=== PATIENT | female | born 1965 | race Caucasian/White ===

== ENCOUNTER → 2017-07-30 | Outpatient (CLI) | payer OTHER, BC ==
--- NOTE | 2017-08-02 09:47 | EEG PRO FEE REPORT ---
EEG INTERPRETATION PATIENT NAME: NICK VINSON ROOM#: ORDER#: [id number] DATE OF STUDY: 07/30/2017 : 1965 REFERRING MD: ADRIAN GODOY M.D. DIAGNOSIS: Delayed speech REPORT The background activity consists almost entirely of motion artifact on a background of what appears to be when it can barely be seen 10-12 Hz alpha. IMPRESSION No video correlations of seizures are noted. Basically it is a very difficult EEG to read because of all the excessive motion artifact. INTERPRETING PHYSICIAN: ADRIAN GODOY M.D. /: MTEFFT TT: [id number] ID: [id number] /: [id number] TD: [id number] JOB: [id number] cc:Betty KING M.D. >
== END ==
LOC: NEURO 08:20
PROVIDERS: ATTEND Specialist
DX: F80.9 Developmental disorder of speech and language, unspecified (principal)
CPT/HCPCS: 95819

== ENCOUNTER 2017-10-04 20:03 | Emergency (ER) | payer BC, OTHER ==
--- NOTE | 2017-10-04 20:42 | ER Document Report ---
ED General - General Chief Complaint: General Weakness Stated Complaint: WEAKNESS Time Seen by Provider: 10/04/17 20:22 Notes: Patient is a 51-year-old female that comes emergency department for chief complaint of weakness, intermittent weakness and numbness in her limbs, increased stuttering, and difficulty recalling things. She states that she was called by her primary, Derrick DE LA FUENTE, told that she had abnormal labs and she needed to come to the emergency department. She is unsure what these labs are. She states over the past 2 weeks she has had increased stuttering problems, she states 4 days ago she went numb in her right leg but it resolved, she states 2 days ago she went numb in her left arm and leg but this also resolved. She states she feels generally weak. She has trouble recalling anything that is currently happening reportedly. She denies any focal numbness or weakness at this time, denies headache, fever, shortness of breath, nausea or vomiting, passing out. Past medical history of cirrhosis secondary to alcohol, hypothyroidism, depression. She denies any recreational drugs. She has had a cholecystectomy and gastric bypass. TRAVEL OUTSIDE OF THE [place] IN LAST 30 DAYS: No - Related Data Allergies/Adverse Reactions: No Known Allergies Allergy (Verified 03/15/16 11:57) Past Medical History - General Information source: Patient - Social History Smoking Status: Former Smoker Frequency of alcohol use: Heavy - Daily Drug Abuse: None Lives with: Family Family History: Reviewed & Not Pertinent Pulmonary Medical History: Denies: Hx Tuberculosis Endocrine Medical History: Reports: Hx Hypothyroidism GI Medical History: Reports: Other - Cirrhosis of the liver Past Surgical History: Reports: Hx Section, Hx Cholecystectomy, Hx Gastric Bypass Surgery - She reports her gastric bypass work for about 7 years and then stopped work, Hx Orthopedic Surgery - left arm rotator cuff repair, Hx Tonsillectomy, Hx Tubal Ligation. Denies: Hx Pacemaker - Immunizations Hx Diphtheria, Pertussis, Tetanus Vaccination: No Review of Systems - Review of Systems Constitutional: See HPI EENT: No symptoms reported Cardiovascular: No symptoms reported Respiratory: No symptoms reported Gastrointestinal: See HPI Genitourinary: No symptoms reported Female Genitourinary: No symptoms reported Musculoskeletal: No symptoms reported Skin: No symptoms reported Hematologic/Lymphatic: No symptoms reported Neurological/Psychological: See HPI Physical Exam - Vital signs Vitals: Temp Pulse Resp BP Pulse Ox 97.9 F 87 20 111/70 97 10/04/17 20:14 10/04/17 20:14 10/04/17 20:14 10/04/17 20:14 10/04/17 20:14 Interpretation: Normal - General General appearance: Appears well In distress: None - HEENT Head: Normocephalic, Atraumatic Eyes: Normal Conjunctiva: Normal Extraocular movements intact: Yes Eyelashes: Normal Pupils: PERRL Ears: Normal External canal: Normal Tympanic membrane: Normal Nasal: Normal Mouth/Lips: Normal Mucous membranes: Normal Pharynx: Normal Neck: Normal - Respiratory Respiratory status: No respiratory distress Chest status: Nontender Breath sounds: Normal Chest palpation: Normal - Cardiovascular Rhythm: Regular, Tachycardia Heart sounds: Normal auscultation, S1 appreciated, S2 appreciated Murmur: Yes Normal capillary refill: Yes - Abdominal Inspection: Normal Distension: No distension Bowel sounds: Normal Tenderness: Nontender. No: Tender, Guarding Organomegaly: No organomegaly - Back Back: Normal, Nontender - Extremities General upper extremity: Normal inspection, Nontender, Normal color, Normal ROM , Normal temperature General lower extremity: Normal inspection, Nontender, Normal color, Normal ROM , Normal temperature, Normal weight bearing. No: Elisha's sign - Neurological Neuro grossly intact: Yes Cognition: Normal Orientation: No: Disoriented to person, Disoriented to place, Disoriented to time, Disoriented to events Lizbeth Coma Scale Eye Opening: Spontaneous [place] Coma Scale Verbal: Oriented [place] Coma Scale Motor: Obeys Commands [place] Coma Scale Total: 15 Speech: Normal, Other - Patient with a frequent stutter but otherwise has normal speech Cranial nerves: Normal. No: Facial palsy, Forehead sparing, Gaze palsy, Sensory deficit, Tongue deviation Cerebellar coordination: Normal Motor strength normal: LUE, RUE, LLE, RLE Additional motor exam normals: Equal sample examiner Sensory: Normal - Psychological Associated symptoms: Normal affect, Normal mood - Skin Skin Temperature: Warm Skin Moisture: Dry Skin Color: Jaundiced Course - Re-evaluation Re-evalutation: Patient with starter but otherwise her neurological exam is unremarkable. Because of nonspecific neurological symptoms CAT scan of the head was performed but this was unremarkable. Chest x-ray unremarkable. CBC shows macrocytic anemia consistent with alcohol abuse, chemistry shows mild AST elevation, no ALT elevation. Bilirubin is markedly elevated at 11.7 direct bilirubin. Concern for biliary obstruction. Lipase is unremarkable. Patient has had a cholecystectomy. Ultrasound performed, shows nonspecific 4 cm cystic-like area in the gallbladder fossa, no ductal obstruction or other abnormality noted. Patient does not have abdominal pain, no vomiting, no fever. Discussed with Dr. Khan. Discussed with patient. Will call [facility] for potential transferred for biliary obstruction, we do not have gastroenterology coverage. Giving patient thiamine, currently she does not have evidence of alcohol withdrawals. 10/05/17 00:[address] Naqvi, hospitalist at [facility], he has accepted patient for transfer. 10/05/17 06:10 Patient has been reevaluated twice more tonight, she slept a little bit, she does not have any complaints. She does appear slightly more jaundiced on reevaluation's, however she has not developed any vomiting, abdominal pain, or signs of alcohol withdrawal. 10/05/17 06:55 Introduced to Kailyn DE LA FUENTE, no current complaints. - Vital Signs Vital signs: Temp Pulse Resp BP Pulse Ox 97.5 F 87 20 104/65 93 10/05/17 03:27 10/04/17 20:14 10/05/17 04:01 10/05/17 04:01 10/05/17 04:01 - Laboratory Result Diagrams: 10/04/17 21:15 10/04/17 21:15 Laboratory results interpreted by me: 10/04/17 10/04/17 10/04/17 21:15 21:15 21:15 RBC 2.60 L Hgb 10.6 L Hct 30.2 L MCV 116 H MCH 40.6 H RDW 18.1 H Plt Count 58 L Basophils % 2.3 H PT 22.5 H APTT 53.1 H Sodium 131.0 L Carbon Dioxide 19 L BUN 3 L Creatinine 0.45 L Total Bilirubin 14.2 H Direct Bilirubin 11.7 H AST 192 H Alkaline Phosphatase 215 H Albumin 3.3 L Discharge - Discharge Clinical Impression: Biliary obstruction, Weakness, Jaundice Condition: Stable Disposition: [facility] Referrals: DERRICK LONDONO FNP [Primary Care Provider] - Follow up as needed
--- NOTE | 2017-10-04 21:01 | EKG REPORT ---
SEVERITY:- BORDERLINE ECG - SINUS RHYTHM BORDERLINE T ABNORMALITIES, ANTERIOR LEADS BORDERLINE PROLONGED QT INTERVAL : Confirmed by: Efren Weaver 04-Oct-2017 21:01:17
[2017-10-04 21:37] LABS: ABSOLUTE BASOPHILS # (AUTO) 0.1 10^3/uL (0.0-0.2); ABSOLUTE EOSINOPHILS # (AUTO) 0.1 10^3/uL (0.0-0.6); ABSOLUTE LYMPHOCYTES (AUTO) 1.5 10^3/uL (0.5-4.7); ABSOLUTE MONOCYTES (AUTO) 0.4 10^3/uL (0.1-1.4); ABSOLUTE NEUT (AUTO) 2.3 10^3/uL (1.7-8.2); BASOPHILS % (AUTO) 2.3 % (0-2); EOSINOPHILS % (AUTO) 2.7 % (0-6); HEMATOCRIT 30.2 % (36.0-47.0); HEMOGLOBIN 10.6 g/dL (12.0-15.5); LYMPHOCYTES % (AUTO) 34.8 % (13-45); MEAN CORPUSCULAR HEMOGLOBIN 40.6 pg (27.0-33.4); MEAN CORPUSCULAR HGB CONC 34.9 g/dL (32.0-36.0); MEAN CORPUSCULAR VOLUME 116 fl (80-97); MONOCYTES % (AUTO) 8.6 % (3-13); PLATELET COUNT 58 10^3/uL (150-450); RED CELL DISTRIBUTION WIDTH 18.1 % (11.5-14.0); SEGMENTED NEUTROPHILS % (AUTO) 51.6 % (42-78); TOTAL CELLS COUNTED % (AUTO) 100 %; WHITE BLOOD COUNT 4.4 10^3/uL (4.0-10.5)
[2017-10-04 21:39] LABS: INTERNATIONAL RATION (INR) 1.88; PROTHROMBIN TIME 22.5 SEC (11.4-15.4)
[2017-10-04 21:41] LABS: PARTIAL THROMBOPLASTIN TIME 53.1 SEC (23.5-35.8)
--- NOTE | 2017-10-04 21:50 | RADIOLOGY REPORT (SQ) ---
EXAM DESCRIPTION: CT HEAD WITHOUT COMPLETED DATE/TIME: 10/04/2017 9:27 pm REASON FOR STUDY: speech difficulty, confused COMPARISON: None. TECHNIQUE: Axial images acquired through the brain without intravenous contrast. Images reviewed wi th bone, brain and subdural windows. Images stored on PACS. All CT scanners at this facility use dose modulation, iterative reconstruction, and/or weight based d osing when appropriate to reduce radiation dose to as low as reasonably achievable (ALARA). [facility]: Dose Right [facility]: CareDose [facility]: Dose Right [facility]: Teradose 4D [facility]: Smart [employer] RADIATION DOSE: CT Rad equipment meets quality standard of care and radiation dose reduction techniq ues were employed. CTDIvol: 53.2 mGy. DLP: 964 mGy-cm. mGy. LIMITATIONS: None. FINDINGS: VENTRICLES: Normal size and contour. CEREBRUM: No masses. No hemorrhage. No midline shift. No evidence for acute infarction. Normal gra y/white matter differentiation. No areas of low density in the white matter. CEREBELLUM: No masses. No hemorrhage. No alteration of density. No evidence for acute infarction. EXTRAAXIAL SPACES: No fluid collections. No masses. ORBITS AND GLOBE: No intra- or extraconal masses. Normal contour of globe without masses. CALVARIUM: No fracture. PARANASAL SINUSES: No fluid or mucosal thickening. SOFT TISSUES: No mass or hematoma. OTHER: No other significant finding. IMPRESSION: No acute intracranial findings. EVIDENCE OF ACUTE STROKE: No COMMENT: Quality ID # 436: Final reports with documentation of one or more dose reduction techniques (e.g., Automated exposure control, adjustment of the mA and/or kV according to patient size, use of iterative reconstruction technique) TECHNICAL DOCUMENTATION: JOB ID: [id number] [place]-72 2010 [employer]- All Rights Reserved Reading location - IP/workstation name: [email or web address]
[2017-10-04 21:58] LABS: ALANINE AMINOTRANSFERASE 45 U/L (9-52); ALBUMIN 3.3 g/dL (3.5-5.0); ALCOHOL 186 mg/dL (NONE DETECTED); ALKALINE PHOSPHATASE 215 U/L (38-126); ANION GAP 12 (5-19); ASPARTATE AMINO TRANSFERASE 192 U/L (14-36); BILIRUBIN,DIRECT 11.7 mg/dL (0.0-0.4); BILIRUBIN,TOTAL 14.2 mg/dL (0.2-1.3); BLOOD UREA NITROGEN 3 mg/dL (7-20); CALCIUM 8.6 mg/dL (8.4-10.2); CARBON DIOXIDE 19 mmol/L (22-30); CHLORIDE 100 mmol/L (98-107); CREATINE KINASE 39 U/L (30-135); GLUCOSE 91 mg/dL (75-110); POTASSIUM 4.2 mmol/L (3.6-5.0); TOTAL PROTEIN 6.7 g/dL (6.3-8.2)
--- NOTE | 2017-10-04 21:59 | RADIOLOGY REPORT (SQ) ---
EXAM DESCRIPTION: CHEST SINGLE VIEW COMPLETED DATE/TIME: 10/04/2017 9:37 pm REASON FOR STUDY: weakness COMPARISON: 03/26/2016 EXAM PARAMETERS: NUMBER OF VIEWS: One view. TECHNIQUE: Single frontal radiographic view of the chest acquired. RADIATION DOSE: NA LIMITATIONS: None. FINDINGS: LUNGS AND PLEURA: No acute opacities, masses or pneumothorax. No pleural effusion. MEDIASTINUM AND HILAR STRUCTURES: No masses. Contour normal. HEART AND VASCULAR STRUCTURES: Stable. BONES: No acute findings. HARDWARE: None in the chest. OTHER: No other significant finding. IMPRESSION: NO ACUTE RADIOGRAPHIC FINDING IN THE CHEST. TECHNICAL DOCUMENTATION: JOB ID: [id number] [place]-72 2010 [employer]- All Rights Reserved Reading location - IP/workstation name: [email or web address]
[2017-10-04 22:00] LABS: ANISOCYTOSIS 1+; PLATELET COMMENT DECREASED; POIKILOCYTOSIS SLIGHT; TARGET CELLS SLIGHT; TOXIC GRANULATION SLIGHT
[2017-10-04 22:09] LABS: CREATINE KINASE MB 0.56 ng/mL (<4.55)
[2017-10-04 22:11] LABS: TROPONIN I < 0.012 ng/mL
--- NOTE | 2017-10-04 23:44 | RADIOLOGY REPORT (SQ) ---
EXAM DESCRIPTION: U/S ABDOMEN LIMITED W/O DOP COMPLETED DATE/TIME: 10/04/2017 11:30 pm REASON FOR STUDY: very elevated bili; mass? obstruction? COMPARISON: None. TECHNIQUE: Dynamic and static grayscale images acquired of the right upper quadrant and recorded on PACS. Additional selected color Doppler and spectral images recorded. LIMITATIONS: Study limited due to acoustical interference from fat or from air in the bowel. FINDINGS: PANCREAS: Parts or all of the pancreas poorly seen secondary to acoustical interference fr om fat or from air in the bowel. LIVER: Mild hepatomegaly. Echotexture is coarse with increased echogenicity consistent with fatty in filtration. No masses. LIVER VASCULATURE: Normal directional flow of the main portal vein and hepatic veins. GALLBLADDER: 4 cm septated cystic area -free fluid in the gallbladder fossa. ULTRASOUND-DETECTED BEE'S SIGN: Negative. INTRAHEPATIC DUCTS AND COMMON DUCT: CBD and intrahepatic ducts normal caliber. No filling defects. INFERIOR VENA CAVA: Normal flow. AORTA: No aneurysm. RIGHT KIDNEY: Normal size. Normal echogenicity. No solid or suspicious masses. No hydronephrosis. No calcifications. PERITONEAL CAVITY AND RIGHT PLEURAL SPACE: No ascites or effusions. OTHER: No other significant finding. IMPRESSION: 4 cm septated cystic area -free fluid in the gallbladder fossa, uncertain significance. FATTY LIVER. PANCREAS PARTIALLY OR COMPLETELY OBSCURED. TECHNICAL DOCUMENTATION: JOB ID: [id number] [place]-72 2010 [employer]- All Rights Reserved Reading location - IP/workstation name: [email or web address]
[2017-10-04] MEDS ORDERED: THIAMINE HCL 100 MG in NORMAL SALINE 50 ML IV ONE (23:55)
[2017-10-04] MEDS ORDERED: NORMAL SALINE 1000 ML 1,000 ML IV ONE (23:55)
[2017-10-05] MEDS ORDERED: THIAMINE HCL INJ 200 MG/2 ML VIAL ONE (00:24)
[2017-10-05] MEDS ORDERED: NORMAL SALINE 1000 ML 1,000 ML IV ONE (09:30)
[2017-10-05] MEDS ORDERED: ONDANSETRON HCL INJ/PF 4 MG/2 ML SDV IV ONE (09:30)
[2017-10-05 11:02] VITALS: BP 112/69
[2017-10-05] MEDS ORDERED: LORAZEPAM INJ 2 MG/1 ML VIAL IV ONE (11:08)
== END 2017-10-05 11:15 | disposition short-term general hospital (02) ==
LOC: ER 20:03
DX: K83.1 Obstruction of bile duct (principal); R17 Unspecified jaundice; R53.1 Weakness; R20.0 Anesthesia of skin; R47.82 Fluency disorder in conditions classified elsewhere; E03.9 Hypothyroidism, unspecified; Z90.49 Acquired absence of other specified parts of digestive tract; Z98.84 Bariatric surgery status; Z98.51 Tubal ligation status; R11.0 Nausea; R04.0 Epistaxis
CPT/HCPCS: 93005; 99285; 96361; 96374; 96375; 36415; 82553; 80307; 82140; 82550; 83690; 85025; 85610; 85730; 80053; 84484; 71045; 76705; 70450; 93010; J2060; J3411; J2405; J7030

== ENCOUNTER 2017-10-26 13:01 | Inpatient (IN) | payer BC ==
[2017-10-26] MEDS ORDERED: AZTREONAM INJ 1 GM VIAL IV ONE (13:46)
[2017-10-26] MEDS ORDERED: VANCOMYCIN HCL INJ 1000 MG VIAL IV ONE (13:46)
[2017-10-26] MEDS ORDERED: NORMAL SALINE 1000 ML 1,000 ML IV ONE (13:46)
--- NOTE | 2017-10-26 14:13 | EKG REPORT ---
SEVERITY:- BORDERLINE ECG - SINUS RHYTHM LOW VOLTAGE IN FRONTAL LEADS BORDERLINE R WAVE PROGRESSION, ANTERIOR LEADS : Confirmed by: Paramjit Weldon MD 26-Oct-2017 14:13:18
[2017-10-26 14:30] LABS: AMORPHOUS SEDIMENT,URINE 1+ /HPF; APPEARANCE,URINE CLOUDY; BILIRUBIN,URINE SMALL (NEGATIVE); COLOR,URINE YELLOW; GLUCOSE, URINE 50 mg/dL (NEGATIVE); KETONES,URINE NEGATIVE (NEGATIVE); LEUKOCYTE ESTERASE,URINE NEGATIVE (NEGATIVE); NITRITE,URINE NEGATIVE (NEGATIVE); PROTEIN,URINE 100 mg/dL (NEGATIVE); URINE SPECIFIC GRAVITY 1.024; UROBILINOGEN,URINE NEGATIVE mg/dL (<2.0)
--- NOTE | 2017-10-26 14:41 | RADIOLOGY REPORT (SQ) ---
EXAM DESCRIPTION: CHEST SINGLE VIEW COMPLETED DATE/TIME: 10/26/2017 2:20 pm REASON FOR STUDY: Pneumonia COMPARISON: 10/04/2017 EXAM PARAMETERS: NUMBER OF VIEWS: One view. TECHNIQUE: Single frontal radiographic view of the chest acquired. RADIATION DOSE: NA LIMITATIONS: Poor inspiratory effort. FINDINGS: LUNGS AND PLEURA: Low lung volumes. Perihilar airspace disease. No large effusions. MEDIASTINUM AND HILAR STRUCTURES: Increased right paratracheal density likely related to technique. HEART AND VASCULAR STRUCTURES: Cardiomegaly. Pulmonary vascular congestion. BONES: No acute findings. HARDWARE: None in the chest. OTHER: No other significant finding. IMPRESSION: Perihilar airspace disease could be due to pulmonary vascular congestion/volume overload or atypical pneumonia. TECHNICAL DOCUMENTATION: JOB ID: [id number] [employer]- All Rights Reserved Reading location - IP/workstation name: [email or web address]
[2017-10-26 15:07] LABS: VENOUS BLOOD BASE EXCESS -9.9 mmol/L; VENOUS BLOOD HCO3 14.7 mmol/L (20-32); VENOUS BLOOD PCO2 27.9 mmHg (35-63); VENOUS BLOOD PH 7.34 (7.30-7.42)
[2017-10-26 15:20] LABS: INTERNATIONAL RATION (INR) 2.36; PROTHROMBIN TIME 26.9 SEC (11.4-15.4)
--- NOTE | 2017-10-26 15:22 | ER Document Report ---
ED General - General Chief Complaint: Altered Mental Status Stated Complaint: ALTERED MENTAL STATUS Time Seen by Provider: 10/26/17 13:46 Mode of Arrival: Wheelchair Information source: Patient Notes: History of complain-51 years old female brought in by the , because she was not responding well lethargic and turned completely yellow. She was diagnosed with cirrhosis of the liver. Was seen in the [facility] about a week ago. Could not get any history from patient. REVIEW OF SYSTEMS: Review of system is not possible due to patient's condition. She is unable to communicate. ALL OTHER SYSTEMS REVIEWED AND NEGATIVE. PHYSICAL EXAMINATION: GENERAL: She is completely jaundiced, lethargic, confusion HEAD: Atraumatic, normocephalic. EYES: Pupils equal round and reactive to light, extraocular movements intact, conjunctiva are icteric. ENT: Nares patent, oropharynx clear without exudates. Moist mucous membranes. NECK: Normal range of motion, supple without lymphadenopathy LUNGS: Breath sounds clear to auscultation bilaterally and equal. No wheezes rales or rhonchi. HEART: Regular rate and rhythm without murmurs ABDOMEN: Soft, diffuse mild tenderness with distention of the abdomen. No obvious ascites able to palpate due to tenderness. Female : deferred Musculoskeletal: Normal range of motion, no pitting or edema. No cyanosis. NEUROLOGICAL: Cranial nerves grossly intact. Normal speech, normal gait. Normal sensory, motor exams PSYCH: Normal mood, normal affect. SKIN: Warm, Dry, normal turgor, no rashes or lesions noted. Dictation was performed using [employer] voice recognition software TRAVEL OUTSIDE OF THE [place] IN LAST 30 DAYS: No - HPI Onset/Duration: Gradual, Persistent Quality of pain: Other - Unknown Severity: Severe Associated symptoms: Other - Related Data Allergies/Adverse Reactions: No Known Allergies Allergy (Verified 03/15/16 11:57) Past Medical History - Social History Smoking Status: Unknown if Ever Smoked Family History: Reviewed & Not Pertinent Patient has suicidal ideation: No Patient has homicidal ideation: No Pulmonary Medical History: Denies: Hx Tuberculosis Endocrine Medical History: Reports: Hx Hypothyroidism Renal/ Medical History: Denies: Hx Peritoneal Dialysis Past Surgical History: Reports: Hx Section, Hx Cholecystectomy, Hx Gastric Bypass Surgery - She reports her gastric bypass work for about 7 years and then stopped work, Hx Orthopedic Surgery - left arm rotator cuff repair, Hx Tonsillectomy, Hx Tubal Ligation. Denies: Hx Pacemaker - Immunizations Hx Diphtheria, Pertussis, Tetanus Vaccination: No Physical Exam - Vital signs Vitals: Resp Pulse Ox 23 H 94 10/26/17 13:12 10/26/17 13:12 Course - Re-evaluation Re-evalutation: 10/26/17 16:50 Patient signed out - Vital Signs Vital signs: Temp Pulse Resp BP Pulse Ox 96.1 F L 23 H 97/57 L 99 10/26/17 16:30 10/26/17 16:30 10/26/17 16:30 10/26/17 16:30 - Laboratory Result Diagrams: 10/26/17 14:45 10/26/17 14:45 Laboratory results interpreted by me: 10/26/17 10/26/17 10/26/17 13:45 14:45 14:45 PT 26.9 H Carbonic Acid ABG pCO2 ABG pO2 ABG HCO3 ABG Total CO2 ABG O2 Saturation VBG pCO2 VBG HCO3 Sodium 128.6 L Carbon Dioxide 12 L BUN 57 H Creatinine 4.77 H Est GFR ( Amer) 12 L Est GFR (Non-Af Amer) 10 L Glucose 73 L Total Bilirubin 36.5 H AST 110 H Alkaline Phosphatase 147 H Ammonia Total Protein 6.1 L Albumin 2.6 L Urine Protein 100 H Urine Glucose (UA) 50 H Urine Blood MODERATE H Urine Bilirubin SMALL H 10/26/17 10/26/17 10/26/17 14:45 14:45 16:05 PT Carbonic Acid 0.73 L ABG pCO2 24.2 L ABG pO2 136.6 H ABG HCO3 14.2 L ABG Total CO2 14.9 L ABG O2 Saturation 98.8 H VBG pCO2 27.9 L VBG HCO3 14.7 L Sodium Carbon Dioxide BUN Creatinine Est GFR ( Amer) Est GFR (Non-Af Amer) Glucose Total Bilirubin AST Alkaline Phosphatase Ammonia 46.1 H Total Protein Albumin Urine Protein Urine Glucose (UA) Urine Blood Urine Bilirubin Discharge - Discharge Clinical Impression: Jaundice Referrals: DERRICK LONDONO FNP [Primary Care Provider] - Follow up as needed
[2017-10-26 15:38] LABS: ALANINE AMINOTRANSFERASE 39 U/L (9-52); ALBUMIN 2.6 g/dL (3.5-5.0); ALKALINE PHOSPHATASE 147 U/L (38-126); ANION GAP 19 (5-19); ASPARTATE AMINO TRANSFERASE 110 U/L (14-36); BLOOD UREA NITROGEN 57 mg/dL (7-20); CALCIUM 9.2 mg/dL (8.4-10.2); CARBON DIOXIDE 12 mmol/L (22-30); CHLORIDE 98 mmol/L (98-107); GLUCOSE 73 mg/dL (75-110); POTASSIUM 4.9 mmol/L (3.6-5.0); SODIUM 128.6 mmol/L (137-145); TOTAL PROTEIN 6.1 g/dL (6.3-8.2)
[2017-10-26 15:55] LABS: BILIRUBIN,TOTAL 36.5 mg/dL (0.2-1.3)
[2017-10-26 16:20] LABS: ARTERIAL BLOOD BASE EXCESS -9.4 mmol/L; ARTERIAL BLOOD FIO2 3.5L; ARTERIAL BLOOD H2CO3 0.73 mmol/L (1.05-1.35); ARTERIAL BLOOD HCO3 14.2 mmol/L (20-26); ARTERIAL BLOOD O2 SATURATION 98.8 % (94-98); ARTERIAL BLOOD PCO2 24.2 mmHg (35-45); ARTERIAL BLOOD PH 7.39 (7.35-7.45); ARTERIAL BLOOD PO2 136.6 mmHg (80-100); ARTERIAL BLOOD TOTAL CO2 14.9 mmol/L (21-25)
[2017-10-26] MEDS ORDERED: DOPAMINE HCL/DEXTROSE 5%-WATER 800 MG/250 ML RTUINJ IV ONE (16:51)
[2017-10-26 16:53] LABS: ABSOLUTE EOSINOPHILS # (AUTO) 0.1 10^3/uL (0.0-0.6); ABSOLUTE LYMPHOCYTES (AUTO) 0.9 10^3/uL (0.5-4.7); ABSOLUTE MONOCYTES (AUTO) 0.6 10^3/uL (0.1-1.4); ABSOLUTE NEUT (AUTO) 5.2 10^3/uL (1.7-8.2); BASOPHILS % (AUTO) 0.7 % (0-2); EOSINOPHILS % (AUTO) 1.4 % (0-6); HEMATOCRIT 26.9 % (36.0-47.0); HEMOGLOBIN 9.6 g/dL (12.0-15.5); LYMPHOCYTES % (AUTO) 13.3 % (13-45); MEAN CORPUSCULAR HEMOGLOBIN 40.6 pg (27.0-33.4); MEAN CORPUSCULAR HGB CONC 35.7 g/dL (32.0-36.0); MONOCYTES % (AUTO) 8.3 % (3-13); RED BLOOD COUNT 2.37 10^6/uL (3.72-5.28); RED CELL DISTRIBUTION WIDTH 14.5 % (11.5-14.0); SEGMENTED NEUTROPHILS % (AUTO) 76.3 % (42-78); TOTAL CELLS COUNTED % (AUTO) 100 %; WHITE BLOOD COUNT 6.9 10^3/uL (4.0-10.5)
[2017-10-26 16:55] LABS: PLATELET COUNT 58 10^3/uL (150-450)
[2017-10-26 16:56] LABS: MEAN CORPUSCULAR VOLUME 114 fl (80-97)
[2017-10-26] MEDS: DOPAMINE HCL/DEXTROSE 5%-WATER 800 MG/250 ML RTUINJ IV PRN ×3 (16:56→19:57)
[2017-10-26 17:12] LABS: ANISOCYTOSIS SLIGHT; BURR CELLS 1+; OVALOCYTES SLIGHT; PLATELET COMMENT DECREASED; POIKILOCYTOSIS 1+; TARGET CELLS SLIGHT; TOXIC GRANULATION SLIGHT
[2017-10-26] MEDS ORDERED: NOREPINEPHRINE BITARTRATE INJ/PF 4 MG/4 ML SDV IV ONE (17:24)
--- NOTE | 2017-10-26 18:56 | RADIOLOGY REPORT (SQ) ---
EXAM DESCRIPTION: CT ABD/PELVIS NO ORAL OR IV COMPLETED DATE/TIME: 10/26/2017 6:31 pm REASON FOR STUDY: Jaundice rule out ascites COMPARISON: None. TECHNIQUE: CT scan of the abdomen and pelvis performed without intravenous or oral contrast. Images reviewed with lung, soft tissue, and bone windows. Reconstructed coronal and sagittal MPR images revi ewed. All images stored on PACS. All CT scanners at this facility use dose modulation, iterative reconstruction, and/or weight based d osing when appropriate to reduce radiation dose to as low as reasonably achievable (ALARA). [facility]: Dose Right [facility]: CareDose [facility]: Dose Right [facility]: Teradose 4D [facility]: Smart [employer] RADIATION DOSE: CT Rad equipment meets quality standard of care and radiation dose reduction techniq ues were employed. CTDIvol: 19.5 mGy. DLP: 1096 mGy-cm.mGy. LIMITATIONS: None. FINDINGS: LOWER CHEST: Bilateral pleural effusions, moderate left, small right. Basilar subsegmenta l atelectasis. NON-CONTRASTED LIVER, SPLEEN, ADRENALS: Moderate ascites. Hepatomegaly. Evaluation limited by lack of IV contrast. PANCREAS: No masses identified. Mild peripancreatic inflammatory changes. GALLBLADDER: Surgically absent. RIGHT KIDNEY AND URETER: No suspicious masses. Assessment limited by lack of IV contrast. No signif icant calcifications. No hydronephrosis or hydroureter. LEFT KIDNEY AND URETER: No suspicious masses. Assessment limited by lack of IV contrast. No signifi cant calcifications. No hydronephrosis or hydroureter. AORTA AND RETROPERITONEUM: No aneurysm. Scattered adenopathy. BOWEL AND PERITONEAL CAVITY: Moderate wall thickening in the ascending colon with scattered inflammat ory changes. Moderate free fluid. APPENDIX: Not visualized. PELVIS, BLADDER, AND ABDOMINAL WALL: Anasarca. Moderate ascites and pelvic free fluid. Bladder bereket l. BONES: No acute findings. OTHER: . IMPRESSION: Moderate wall thickening in the ascending colon with scattered inflammatory changes. Mo derate ascites and pelvic free fluid. Bilateral pleural effusions, moderate left, small right. Basilar subsegmental atelectasis. COMMENT: Quality ID # [id number]: Final reports with documentation of one or more dose reduction techniques (e.g., Automated exposure control, adjustment of the mA and/or kV according to patient size, use of iterative reconstruction technique) TECHNICAL DOCUMENTATION: JOB ID: [id number] [place]-72 2010 [employer]- All Rights Reserved Reading location - IP/workstation name: [email or web address]
[2017-10-26] MEDS: FENTANYL CITRATE INJ/PF 100 MCG/2 ML AMPUL IV SCH (19:56)
[2017-10-26] MEDS ORDERED: ONDANSETRON HCL INJ/PF 4 MG/2 ML SDV IV PRN (20:52)
[2017-10-26] MEDS: MORPHINE SULFATE 10 MG/ML INJ IV PRN ×2 (21:50→23:38)
[2017-10-27] MEDS: FENTANYL CITRATE INJ/PF 100 MCG/2 ML AMPUL IV SCH ×3 (01:02→07:33)
[2017-10-27] MEDS: MORPHINE SULFATE 10 MG/ML INJ IV PRN ×6 (02:53→22:11)
[2017-10-27] MEDS: DOPAMINE HCL/DEXTROSE 5%-WATER 800 MG/250 ML RTUINJ IV PRN (05:20)
--- NOTE | 2017-10-27 05:39 | PDOC H&P ---
History of Present Illness Admission Date/PCP: 10/26/17 21:33 SUDHAKAR PELLETIER Patient complains of: Altered mental status History of Present Illness: KAT VINSON is a 51 year old female with past medical history of alcoholic cirrhosis and end-stage liver failure. Patient presents accompanied by intoxicated partner with complaints of lethargy and jaundice. Patient was discharged from [facility] approximately a week ago with recommendation of hospice. Patient is unmarried, adult children unavailable, patient's father who accompanied her during hospitalization at [facility] was contacted and was able to verify the patient's wishes of DNR and hospice. In the emergency room she is found unresponsive, hypotensive, severely jaundiced. Patient is transferred to the hospitalist service pending arrangements for inpatient hospice. Past Medical History Medical History: Other - Unclear other than end-stage liver disease secondary to encephalopathy. Pulmonary Medical History: Denies: Tuberculosis Endocrine Medical History: Reports: Hypothyroidism Hematology: Reports: Anemia Past Surgical History Past Surgical History: Reports: Section, Cholecystectomy, Gastric Bypass Surgery - She reports her gastric bypass work for about 7 years and then stopped work, Orthopedic Surgery - left arm rotator cuff repair, Tonsillectomy, Tubal Ligation Denies: Pacemaker Social History Information Source: Emergency Med Personnel, Outside Facility Records Lives with: Spouse/Significant other Smoking Status: Unknown if Ever Smoked Frequency of Alcohol Use: Heavy Hx Recreational Drug Use: No Drugs: None Hx Prescription Drug Abuse: No - Advance Directive Resuscitation Status: Comfort Measures Only Family History Family History: Other - Unobtainable Parental Family History Reviewed: No - Unobtainable Children Family History Reviewed: No Sibling(s) Family History Reviewed.: No Medication/Allergy Home Medications: Doxycycline Hyclate 50 mg PO BID 10/05/17 Fluoxetine HCl 40 mg PO QAM 10/05/17 Levothyroxine Sodium 25 mcg PO DAILY 10/05/17 Venlafaxine HCl ER [Effexor Xr 37.5 mg Cap.sr] 37.5 mg PO DAILY 10/05/17 Allergies/Adverse Reactions: No Known Allergies Allergy (Verified 03/15/16 11:57) Review of Systems ROS unobtainable: Due to mental status Physical Exam Vital Signs: Temp Pulse Resp BP Pulse Ox 98.0 F 88 16 85/33 L 98 10/26/17 23:31 10/26/17 23:31 10/26/17 23:31 10/26/17 23:31 10/26/17 23:31 Intake & Output 10/25/17 10/26/17 10/27/17 11:59 11:59 11:59 Intake Total 0 Output Total 0 Balance 0 Weight 82.4 kg General appearance: PRESENT: disheveled, obese, severe distress, other - Unresponsive, protecting airway Head exam: PRESENT: atraumatic, normocephalic Eye exam: PRESENT: periorbital swelling, PERRLA, scleral icterus Ear exam: PRESENT: normal external ear exam Mouth exam: PRESENT: moist, tongue midline Neck exam: ABSENT: carotid bruit, JVD, lymphadenopathy, thyromegaly Respiratory exam: PRESENT: accessory muscle use, crackles, prolonged expiratory phas Cardiovascular exam: PRESENT: RRR. ABSENT: diastolic murmur, rubs, systolic murmur Pulses: PRESENT: normal dorsalis pedis pul Vascular exam: PRESENT: normal capillary refill GI/Abdominal exam: PRESENT: ascites, distended, hypoactive bowel sounds, normal bowel sounds, soft. ABSENT: guarding, mass, organolmegaly, rebound, tenderness Rectal exam: PRESENT: deferred Extremities exam: PRESENT: full ROM, pedal edema, +2 edema. ABSENT: calf tenderness, clubbing Neurological exam: PRESENT: altered, CN II-XII grossly intact Psychiatric exam: PRESENT: flat affect. ABSENT: homicidal ideation, suicidal ideation Skin exam: PRESENT: jaundice, warm. ABSENT: cyanosis, erythema, rash Results Impressions: Chest X-Ray 10/26/17 13:47 IMPRESSION: Perihilar airspace disease could be due to pulmonary vascular congestion/volume overload or atypical pneumonia. Abdomen/Pelvis CT 10/26/17 16:37 IMPRESSION: Moderate wall thickening in the ascending colon with scattered inflammatory changes. Moderate ascites and pelvic free fluid. Bilateral pleural effusions, moderate left, small right. Basilar subsegmental atelectasis. Assessment & Plan - Diagnosis (1) Liver failure Qualifiers: Liver failure chronicity: chronic Hepatic coma status: with hepatic coma Qualified Code(s): K72.11 - Chronic hepatic failure with coma Is this a current diagnosis for this admission?: Yes Plan: Acute on chronic hepatic failure with encephalopathy secondary to alcohol, comfort measures only. (2) Altered mental status Qualifiers: Altered mental status type: unspecified Qualified Code(s): R41.82 - Altered mental status, unspecified Is this a current diagnosis for this admission?: Yes Plan: Supportive care, hospice consult ordered. - Time Time Spent: 30 to 50 Minutes - Inpatient Certification Medical Necessity: Need Close Monitoring Due to Risk of Patient Decompensation
[2017-10-27] MEDS ORDERED: FENTANYL 25 MCG/HR PATCH.TD72 TD ONE (07:45)
[2017-10-27] MEDS ORDERED: FENTANYL 25 MCG/HR PATCH.TD72 TD SCH (10:00)
--- NOTE | 2017-10-27 15:29 | PDOC PROGRESS REPORT ---
Subjective Progress Note for:: 10/27/17 Subjective:: Patient obtunded secondary to liver failure and also renal failure. Per report given to me she was admitted overnight and has been relatively comfortable since the admission. No adverse events. Reason For Visit: END STAGE LIVER FAILURE, HOSPICE Physical Exam Vital Signs: Temp Pulse Resp BP Pulse Ox 98.0 F 81 16 85/33 L 98 10/26/17 23:31 10/27/17 14:00 10/26/17 23:31 10/26/17 23:31 10/26/17 23:31 Intake & Output 10/26/17 10/27/17 10/28/17 06:59 06:59 06:59 Intake Total 30 Output Total 0 Balance 30 Weight 82.4 kg General appearance: PRESENT: no acute distress, obese Head exam: PRESENT: atraumatic, normocephalic Eye exam: PRESENT: scleral icterus Ear exam: PRESENT: normal external ear exam Mouth exam: PRESENT: dry mucosa Neck exam: ABSENT: lymphadenopathy Respiratory exam: PRESENT: decreased breath sounds, rales, unlabored. ABSENT: rhonchi, wheezes Pulses: PRESENT: other - Week pulses throughout GI/Abdominal exam: PRESENT: ascites, hypoactive bowel sounds, soft. ABSENT: mass, tenderness Gentrourinary exam: PRESENT: indwelling catheter - Scant dark urine in Biggs bag Extremities exam: PRESENT: pedal edema Neurological exam: PRESENT: altered. ABSENT: awake Psychiatric exam: PRESENT: agitated Skin exam: PRESENT: jaundice, petechiae Results Impressions: Chest X-Ray 10/26/17 13:47 IMPRESSION: Perihilar airspace disease could be due to pulmonary vascular congestion/volume overload or atypical pneumonia. Abdomen/Pelvis CT 10/26/17 16:37 IMPRESSION: Moderate wall thickening in the ascending colon with scattered inflammatory changes. Moderate ascites and pelvic free fluid. Bilateral pleural effusions, moderate left, small right. Basilar subsegmental atelectasis. Assessment & Plan - Diagnosis (1) End stage liver disease Is this a current diagnosis for this admission?: Yes Plan: Patient has a known history of significant alcohol abuse, she has known liver failure. She was recently discharged from [facility] though some reports at [facility]. I believe it was [place] and we are trying to get the records from [facility] related to her last hospitalization which was related to her liver disease. Her discriminate function is very elevated, her meld score is also very elevated. She is high risk for dying in the next few months. She appears to have hepatorenal syndrome as well. The patient has not recently been a transplant candidate secondary to recent alcohol abuse. (2) Hepatic encephalopathy Is this a current diagnosis for this admission?: Yes Plan: Very elevated ammonia related to liver disease. Patient has some twitching. She does not appear extremely uncomfortable. (3) Alcohol abuse Is this a current diagnosis for this admission?: Yes Plan: Unfortunately this patient was unable to stop drinking. It sounds as if there is a strong family history for alcohol abuse disorder. (4) Hypotension Qualifiers: Hypotension type: unspecified hypotension type Qualified Code(s): I95.9 - Hypotension, unspecified Is this a current diagnosis for this admission?: Yes Plan: Related to liver failure. (5) Renal failure Qualifiers: Renal failure chronicity: acute on chronic Acute renal failure type: unspecified Chronic kidney disease stage: unspecified stage Qualified Code(s ): N17.9 - Acute kidney failure, unspecified; N18.9 - Chronic kidney disease, unspecified; N18.9 - Chronic kidney disease, unspecified Is this a current diagnosis for this admission?: Yes Plan: Likely related to liver failure with hepatorenal syndrome. She is almost anuric. (6) Discomfort Is this a current diagnosis for this admission?: Yes Plan: Patient intermittently moans and grimaces and appears uncomfortable. She was receiving every 4 hours fentanyl scheduled with as needed morphine. The every 4 hours fentanyl was not holding her with a goal of maintaining comfort and she was receiving IV morphine and so I placed a fentanyl patch 25 mcg/h. We will continue the as needed morphine. If we need to add Ativan for anxiety or Haldol for agitation we can do that. I will order Levsin for possible terminal secretions. I have given the family the prognosis of hours to days. - Time Time Spent with patient: 35 or more minutes Medications reviewed and adjusted accordingly: Yes Anticipated discharge: Other - Awaiting transfer to inpatient hospice Within: within 24 hours - Inpatient Certification Based on my medical assessment, after consideration of the patient's comorbidities, presenting symptoms, or acuity I expect that the services needed warrant INPATIENT care.: Yes I certify that my determination is in accordance with my understanding of Medicare's requirements for reasonable and necessary INPATIENT services [42 CFR 412.3e].: Yes Medical Necessity: Other - Patient is actively dying - Plan Summary Plan Summary: I held in extended family meeting with the patient's 3 adult sons who are her healthcare power of energy attorney together. She also had a brother and sister in attendance. There were several in-laws. There was also a close family friend. They had a chance to ask questions about her condition. Her sons feel that she is suffering. They know that she would choose to be DNR and DNI at this time and so she is. They also do not want her to suffer any longer. They agree with hospice care.
[2017-10-27] MEDS ORDERED: HYOSCYAMINE SULFATE 0.125 MG TABLET PO PRN (18:44)
[2017-10-27] MEDS ORDERED: HALOPERIDOL LACTATE INJ 5 MG/1 ML VIAL IV PRN (18:45)
[2017-10-28] MEDS: MORPHINE SULFATE 10 MG/ML INJ IV PRN ×14 (00:02→23:00)
[2017-10-28] MEDS: HALOPERIDOL LACTATE INJ 5 MG/1 ML VIAL IV PRN ×2 (08:07→10:50)
[2017-10-28] MEDS: LORAZEPAM INJ 2 MG/1 ML VIAL IV PRN ×4 (08:46→18:00)
[2017-10-28 12:31] VITALS: BP 83/27
[2017-10-28] MEDS: ATROPINE SULFATE 1% OPH SOLN 5 ML BOTTLE SL PRN ×5 (13:54→23:00)
--- NOTE | 2017-10-28 18:26 | PDOC PROGRESS REPORT ---
Subjective Progress Note for:: 10/28/17 Subjective:: yoan not speaking, she is obtunded Reason For Visit: END STAGE LIVER FAILURE, HOSPICE Physical Exam Vital Signs: Temp Pulse Resp BP Pulse Ox 97.6 F 89 22 H 83/27 L 93 10/28/17 12:24 10/28/17 12:24 10/28/17 12:24 10/28/17 12:24 10/28/17 12:24 Intake & Output 10/27/17 10/28/17 10/29/17 06:59 06:59 06:59 Intake Total 30 20 50 Output Total 0 0 Balance 30 20 50 Weight 82.4 kg 85.1 kg General appearance: PRESENT: mild distress Head exam: PRESENT: atraumatic, normocephalic Eye exam: PRESENT: scleral icterus Neck exam: ABSENT: lymphadenopathy Respiratory exam: PRESENT: rhonchi. ABSENT: unlabored, wheezes Cardiovascular exam: PRESENT: RRR. ABSENT: systolic murmur GI/Abdominal exam: PRESENT: ascites, distended, hypoactive bowel sounds, soft. ABSENT: tenderness Extremities exam: PRESENT: pedal edema Neurological exam: PRESENT: altered. ABSENT: alert, awake Skin exam: PRESENT: intact, other - Jaundice Results Impressions: Chest X-Ray 10/26/17 13:47 IMPRESSION: Perihilar airspace disease could be due to pulmonary vascular congestion/volume overload or atypical pneumonia. Abdomen/Pelvis CT 10/26/17 16:37 IMPRESSION: Moderate wall thickening in the ascending colon with scattered inflammatory changes. Moderate ascites and pelvic free fluid. Bilateral pleural effusions, moderate left, small right. Basilar subsegmental atelectasis. Assessment & Plan - Diagnosis (1) End stage liver disease Is this a current diagnosis for this admission?: Yes Plan: Patient is now on comfort measures, hospice consult placed, hospice deferred transfer yesterday secondary to hypotension hospice nurse has been visiting her in the hospital. We will continue comfort care as best we can in the acute hospital setting. She is now on a fentanyl patch 5 mcg. She has morphine 2 mg IV every 2 hours as needed pain or dyspnea. For agitation she has Haldol 1 mg every 2 hours the as needed. She also has Ativan 2 mg IV as needed anxiety. He is also receiving atropine drops for terminal secretions. (2) Hepatic encephalopathy Is this a current diagnosis for this admission?: Yes (3) Alcohol abuse Is this a current diagnosis for this admission?: Yes Plan: cause of cirrhosis, pt unable to stop drinking until recently, she is not a transplant candidate. 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 Please see end-stage liver disease for plan. - Time Time Spent with patient: 35 or more minutes Anticipated discharge: Hospice - Inpatient Certification Based on my medical assessment, after consideration of the patient's comorbidities, presenting symptoms, or acuity I expect that the services needed warrant INPATIENT care.: Yes I certify that my determination is in accordance with my understanding of Medicare's requirements for reasonable and necessary INPATIENT services [42 CFR 412.3e].: Yes Medical Necessity: Significant Comorbidiites Make Outpatient Treatment Too Risky , Need Close Monitoring Due to Risk of Patient Decompensation
[2017-10-29] MEDS: MORPHINE SULFATE 10 MG/ML INJ IV PRN ×3 (00:15→03:50)
[2017-10-29] MEDS: ATROPINE SULFATE 1% OPH SOLN 5 ML BOTTLE SL PRN (02:04)
[2017-10-30] MEDS ORDERED: FENTANYL 25 MCG/HR PATCH.TD72 TD SCH (10:00)
== END 2017-10-29 06:50 | disposition left against medical advice (07) | DRG 432 ==
LOC: ER 13:01 → EH 21:33 → 3S 23:22
PROVIDERS: ADMIT Internal Medicine; ATTEND Internal Medicine
DX: K70.41 Alcoholic hepatic failure with coma (principal); N17.9 Acute kidney failure, unspecified; Z66 Do not resuscitate; I95.9 Hypotension, unspecified; K70.31 Alcoholic cirrhosis of liver with ascites; K70.11 Alcoholic hepatitis with ascites; F10.10 Alcohol abuse, uncomplicated; E03.9 Hypothyroidism, unspecified; Z98.84 Bariatric surgery status
CPT/HCPCS: 36415; 36600; 71045; 74176; 80053; 81001; 82140; 82803; 82962; 83605; 85025; 85610; 87040; 87086; 87088; 93005; 93010; 99285; J1630; J2060; J2270; J2405; J3010; J3370; J3490; J7030